=== PATIENT | female | born 1990 | race Caucasian/White ===

== ENCOUNTER 2016-12-19 18:46 | Inpatient (IN) | payer OTHER ==
[~2016-12-19] VITALS: Ht 161.3 cm; Wt 69.9 kg
[2016-12-19] MEDS ORDERED: Methylergonovine 0.2 mg/mL Inj IM PRN (21:45)
[2016-12-19] MEDS ORDERED: Lactated Ringer's 1,000 ML IV PRN (21:45)
[2016-12-19] MEDS ORDERED: Carboprost 250 mCg/mL Inj IM PRN (21:45)
[2016-12-19] MEDS ORDERED: Sodium Chloride LOK Flush 10 mL Syringe IVFLUSH PRN ×2 (21:45)
[2016-12-19] MEDS ORDERED: Hemorrhage Kit, Post Partum XX ONE (21:45)
[2016-12-19] MEDS ORDERED: Oxytocin 10 Unit/mL Inj IM PRN (21:45)
[2016-12-19] MEDS ORDERED: Ondansetron 2 mg/mL 2 mL Inj IVPUSH PRN (21:45)
[2016-12-19] MEDS ORDERED: fentaNYL-PF 50 mCg/mL 2 mL Inj IVPUSH PRN (21:45)
[2016-12-19] MEDS ORDERED: Oxytocin 30 Units/500 mL LR 30 UNITS in IV Premix 1 EACH IV PRN (21:45)
[2016-12-19] MEDS ORDERED: Lactated Ringer's 1,000 ML IV SCH (21:45)
[2016-12-19 22:28] LABS: Mean Corpuscular Hemoglobin 34.8 pg (27.0-35.0); Mean Corpuscular Volume 99.7 fL (81-100)
--- NOTE | 2016-12-19 23:10 | HP ---
[address] [address] HISTORY AND PHYSICAL PATIENT: JON ROWLEY : 1990 MR#: [id number] ADMIT: 12/19/2016 JOB ID: [id number] DATE: 12/19/2016 CHIEF COMPLAINT: Increased contractions and likely rupture of membranes at term. HISTORY OF PRESENT ILLNESS: A 26-year-old, 2, AB 1, para 0, with an EDC of December 16, 2016 based on LMP of March 11, 2016 presents with increasing contractions over the past few days, worse today. She thinks she may have had some leakage of fluid around 11 o'clock this morning. I saw her in the office about 5 p.m. She was becoming progressively more uncomfortable and when she mentioned the possible rupture, I sent her up to the Center where a ROM+test was positive. Nursing noted her to be 5 cm dilated, with somewhat irregular contractions and a reactive tracing. Patient asked to go to dinner at a local restaurant 1st then came back and now presents for admission. She is becoming more uncomfortable. Admitting nurse noted she did have a still bulging bag despite our ROM plus positive test. She is GBS negative. ISSUES: 1. PENICILLIN allergy. 2. Rubella equivocal. Needs a MMR. 3. Echogenic left ventricular intracardiac focus on initial ultrasound which resolved on a repeat November 18 ultrasound. 4. Gestational diabetes, controlled with diet alone. Last A1c December 04 of this year was 5.1. 5. The patient's mother in November of this year. ALLERGIES: Penicillin causes hives. CURRENT MEDICATIONS: vitamins 1 tablet daily. SOCIAL HISTORY: She works at a local [employer]. She is , Richard. She denies tobacco, alcohol or recreational drug use earlier in . PAST GYNECOLOGIC HISTORY: 3, para 0, AB 1, 1st trimester. PAST MEDICAL HISTORY: Prior varicella as well as prior shingles. FAMILY HISTORY: Half brother of the father of this baby has a cleft palate and the patient's mother had a history of gestational diabetes, recently of unclear causes. LABS: Blood type AB positive, antibody screen negative, rubella equivocal, serology nonreactive. Hepatitis B surface antigen and HIV test negative. Hematocrit 37.2 at 28 weeks. Pap was normal in June of this year. Chlamydia and gonorrhea tests were negative in September by urine. An initial urine culture showed mixed angela. Quad screen was negative in July of this year. An A1c at the beginning of was 5.0. Repeat in October was 4.8, a repeat in November was 5.1. A 28-week glucose tolerance test was abnormal with a fasting of 93, a 1 hour 151, a 2 hour 167. PHYSICAL EXAMINATION: Please see nursing notes for admitting vital signs, initial systolic was 144, repeat is 134/70. She is a slightly uncomfortable, slightly tired-appearing young woman, by last office weight was 154.4 pounds with an initial weight of 125 pounds. By Varinder's done in the office previously, is in vertex position. Estimated weight in the 6 pound range. Vaginal exam shows her to be 6 cm dilated, 100% effaced, -2 station. Bulging bag of fluid. heart tracing shows a baseline in the 140s with good long and short-term variability. There are some variables with contractions which seem to have improved since Nursing has repositioned the patient. These have quick recovery. Per nursing notes, patient is ROM+ positive. ASSESSMENT: 1. Gravid at term. 2. Group B strep negative. 3. Gestational diabetes, diet controlled. However, she has fallen off some of her blood sugar checks the past several weeks. 4. Echogenic ventricular focus on prior ultrasound, resolved. 5. Rubella equivocal. Needs a MMR. 6. PENICILLIN allergy which causes hives. 7. Rupture of membranes, probably 10 hours' duration. She still does have a bulging bag suggesting she may have a partial leak. PLAN: Discussed options and the concern about prolonged rupture of membranes if we do not move towards delivery. She is nolberto but somewhat irregularly. AROM was achieved without difficulty with return of clear fluid. I recommended oxytocin augmentation and case discussed with Dr. Esteban deckhand sponge boat for CONSTRUCTION SAFETY MANAGER providing backup privileges. At present, the patient is managing comfortably and would like to hold off on an epidural but might consider one later. Will get a baseline blood sugar and then plan for only q. shift unless they are significantly elevated. She will need a MMR vaccine. There are no current indications for antibiotics. VAUGHND
[2016-12-20] MEDS ORDERED: Sodium Citrate-Citric Acid 15 mL Solution ONE (01:01)
--- NOTE | 2016-12-20 01:08 | PROG NOTE ---
[address] [address] PROGRESS NOTE PATIENT: JON ROWLEY : 1990 MR#: [id number] ADMIT: 12/19/2016 JOB ID: [id number] DATE: 12/20/2016 INTERVAL HISTORY: I was contacted by nursing to come in because of increased heart rate variables with some decelerations to the 70s with recovery. On cervical examination, patient has not made a lot of cervical change, is still 6 cm, 90-100% effaced, perhaps now -1 down from -2 station. heart tracing shows good variability, typical variable decelerations to as low as the 70s with contractions. Nursing has tried repositioning and oxygen as well as an IV fluid bolus. ASSESSMENT: heart rate variable decelerations that are not responding to appropriate interventions so far. PLAN: Recommended amnioinfusion, and oxytocin was never started as is appropriate given the depth of these variables. IUPC placed without difficulty. Clear amniotic fluid flushed out. Amnioinfusion started with a 500 cc bolus to be followed by 125 cc an hour. The patient tolerated the procedure well. Initially variables seemed to be less deep and less frequent, even as contractions become stronger and more frequent. Will continue to monitor. If she has continued heart rate decelerations despite amnioinfusion and remains remote from delivery, a may be indicated.
[2016-12-20] MEDS ORDERED: Morphine PF 1 mg/mL 10 mL Inj ONE ×2 (01:21→12:44)
[2016-12-20] MEDS ORDERED: Lactated Ringer's 1,000 ML IV SCH (01:23)
[2016-12-20] MEDS ORDERED: Oxytocin 10 Unit/mL Inj IM PRN (01:25)
[2016-12-20] MEDS ORDERED: Hemorrhage Kit, Post Partum XX ONE (01:25)
[2016-12-20] MEDS ORDERED: Methylergonovine 0.2 mg/mL Inj IM PRN (01:25)
[2016-12-20] MEDS ORDERED: Carboprost 250 mCg/mL Inj IM PRN (01:25)
[2016-12-20] MEDS ORDERED: CeFAZolin Inj 2 GM in IV Premix 1 EACH IV SCH (01:25)
[2016-12-20] MEDS ORDERED: Sodium Citrate-Citric Acid 15 mL Solution PO SCH (01:25)
--- NOTE | 2016-12-20 01:41 | PCM.HPANE ---
Patient Data Surgeon Admitting Provider:Jose Fink MD Attending Provider:Jose Fink MD Primary Care Physician:Jose Fink MD Other Provider:Lesa Riveraingham Anesthesia Reason for Visit Active Labor ACTIVE LABOR Ht/WT & BMI Body Mass Index Allergies Coded Allergies: Penicillins (Verified Allergy, Mild, Rash, 12/19/16) Past Anesthesia History Anesthesia History: Denies:: Abnormal Airway, Anesthesia Reactions, Difficult Intubation, Fam Anesthesia Reaction, Fam Malignant Hypertherm, Malignant Hyperthermia Diabetes History Hx Diabetes?: No Medications Hypertension Medication: No Home Meds Incl Beta Emi: No History History of ENT Problems?: No HEENT History: Denies:: Abnormal Airway Cataracts Difficult Intubation Dysphagia Glaucoma Hearing Problem Sinus Problem TMJ Denture Type: None Teeth Condition: Within Normal Limits Hx of Heart Problems?: No Cardiovascular History: Denies:: AICD Abdominal Aortic Aneurism Atrial Fibrillation Cardiac Surgery Chest Pain Congestive Heart Failure Coronary Artery Disease Edema Heart Murmur Hypertension Irregular Heartbeat Pacemaker Peripheral Vascular Rheumatic Fever Thrombophlebitis Valvular Heart Disease Hx of Respiratory Problem?: No Respiratory History: Denies:: Asthma COPD Chest Surgery Cough Dyspnea Emphysema Hemoptysis Oxygen Administration Pneumonia Pulmonary Embolism Tuberculosis Use of C-PAP Machine Use of Inhalers / NEBS Hx Neurologic Problems?: No Hx of GI Problems?: Yes Gastrointestinal History: Positive for:: Heartburn Hx of Problems?: No Female Hx: Positive for:: Currently Hx Musculoskeletal Problems?: No Hx Surgeries?: No Smoking Status: Never Smoker Have You Smoked inLast 12 mo: No Stop/Bang Treated for Sleep Apnea?: No Do You Have a CPAP Machine?: No SILVIA Risk Assessment: Low Risk, <3 Yes Risk Assessment Category Category 1A: Patient has history of documented sleep apnea, and HAS NOT received any narcotic, sedative or anesthesia administration during this stay. Category 1B: Patient has history of documented sleep apnea, and HAS received any narcotic , sedative or anesthesia administration during this stay Category 2: Patient has SUSPECTED Obstructive Sleep Apnea, and HAS received any narcotic , sedative or anesthesia administration during this stay. Category 3: Patient has SUSPECTED Obstructive Sleep Apnea and HAS NOT received narcotic, sedative or anesthesia administration during this stay. Category 4: Outpatient in Procedural Areas with known sleep apnea or who screen positive for High Risk via the STOP/BANG questionnaire. Exam Exam General Appearance: Oriented X3 HEENT/AIRWAY: MP 2 Lungs: Normal Air Movement Heart: Regular Rate/Rhythm Meds/Labs/Diagnostics Admission Meds Current Medications Citric Acid/ Sodium Citrate (Bicitra) 15 ml STK-MED ONCE .ROUTE Last administered on 12/20/16t 01:19; Start 12/20/16 at 01:01; Stop 12/20/16 at 01:02; Status DC Labs Test 12/19/16 22:23 White Blood Count 20.2th/mm3 (3.8-10.1) Red Blood Count 3.97mil/mm3 (3.90-5.20) Hemoglobin 13.8g/dL (12.0-15.6) Hematocrit 39.6% (35.0-46.0) Mean Corpuscular Volume 99.7fL (81-100) Mean Corpuscular Hemoglobin 34.8pg (27.0-35.0) Mean Corpuscular Hemoglobin Concent 34.8% (32.0-37.0) Red Cell Distribution Width 12.5% (12.3-15.4) Platelet Count 215bil/L (150-400) Plan Impression Patient chart reviewed, patient interviewed and anesthestic plan with risks, benefits, and alternatives discussed, and informed consent obtained. ASA Physical Status: ASA2 Plus Emergency Anesthetic Plan: SAB Bene/Risks/Altern/Consents: Yes HP Complete Prior to Induction: Yes Segun Talley MD Dec 20, 2016 01:41
[2016-12-20] MEDS ORDERED: EPHEDrine Sulfate 50 mg/mL Inj IVPUSH PRN (01:45)
[2016-12-20] MEDS ORDERED: fentaNYL-PF 50 mCg/mL 2 mL Inj IVPUSH PRN (01:45)
[2016-12-20] MEDS ORDERED: Atropine 0.4 mg/mL Inj IV PRN (01:45)
--- NOTE | 2016-12-20 02:01 | PROG NOTE ---
[address] [address] PROGRESS NOTE PATIENT: JON ROWLEY : 1990 MR#: [id number] ADMIT: 12/19/2016 JOB ID: [id number] DATE: 12/20/2016 Despite over an hour of amnioinfusion, tracing shows continued variable heart rate decelerations down to the 60s to 70s with recovery. There continues to be fair to moderate intra-contraction heart rate variability. She is nolberto every 2-3 minutes and they are becoming progressively more intense. The patient's cervical examination unfortunately has not significantly changed. She is about 6.5 cm, 0 to -1 station, 90-100% effaced, vertex position. ASSESSMENT: heart rate variables which are deepening and have not responded to multiple resuscitative measures including position changes, oxygen, and an hour plus of amnioinfusion. PLAN: I recommended section. I asked Dr. Esteban to review the tracing and meet with the patient. He concurs. Patient and her partner were updated. The plan is to proceed with . AMRIT
--- NOTE | 2016-12-20 02:53 | PCM.ANEP1 ---
Post Anesthesia PACU Phase 1 Assessment Anesthetic Administered: SAB Level of Alertness: Awake, talking Pain: No Pain Scale Score: 10 Nausea or Vomiting: No CV Function & Hydration Stable: Yes Airway Device: Lungs: Normal Air Movement PACU Phase 2 Assessment Patient Instructions Provided: N/A Segun Talley MD Dec 20, 2016 02:53
[2016-12-20] MEDS ORDERED: Acetaminophen IV 1,000 MG in IV Premix 1 EACH IV PRN (05:55)
--- NOTE | 2016-12-20 08:15 | OP ---
[address] [address] OPERATIVE REPORT PATIENT: JON ROWLEY : 1990 MR#: [id number] ADMIT: 12/19/2016 JOB ID: [id number] DATE OF SURGERY: 12/20/2016 PROCEDURE: Primary low transverse section. PREOPERATIVE DIAGNOSIS(ES): 1. Intrauterine gestation at 39 weeks. 2. Gestational diabetes. 3. Failed induction of labor. 4. Nonreassuring heart rate. POSTOPERATIVE DIAGNOSIS(ES): 1. Intrauterine gestation at 39 weeks. 2. Gestational diabetes. 3. Failed induction of labor. 4. Nonreassuring heart rate. SURGEON: Farzad Esteban MD UNHAIRING MACHINE OPERATOR: Jose Fink MD. The assistance of Dr. Fink was necessary for tissue retraction, manipulation of the tissue, appropriate exposure and help during the delivery of the . ANESTHESIA: Spinal, Segun Talley MD ESTIMATED BLOOD LOSS: 700 mL. ESTIMATED URINE OUTPUT: 200 mL. FLUIDS: 800 mL of lactated Ringer. COMPLICATIONS: None. FINDINGS: Normal appearance of the adnexa and the uterus. The was found to be in the occiput posterior face up presentation. Female delivered, with scores 8 at one minute and 9 at five minutes. Weight 7 pounds 11 ounces. DESCRIPTION OF PROCEDURE: The patient was brought to the operating room, where she underwent spinal anesthesia without difficulty. The patient was placed in the dorsal supine position with a leftward tilt. She was prepped and draped in the usual surgical fashion. The patient received preoperative antibiotics. Time-out was performed verifying correct patient and correct procedure. Pfannenstiel skin incision was made with a scalpel and carried down to the underlying layer of rectus muscle fascia using Bovie. The rectus muscle fascia was incised in the midline with the Bovie and the incision was then laterally extended using Olivares scissors. The lower aspect of the incision was grasped with two Miriam clamps and the rectus muscle fascia was from the underlying rectus muscle using Olivares scissors. In a similar fashion, the upper aspect of the incision was grasped with two Miriam clamps, tented up, and the rectus muscle fascia was from the underlying rectus muscle using Olivares scissors and moist laparotomy sponge. The rectus muscles were in the midline. The peritoneum was identified, tented up with two Mahi clamps, and entered sharply with the Metzenbaum scissors. The peritoneal incision was then laterally extended. The bladder blade was introduced. The vesicouterine peritoneum was identified, tented up with smooth pickups, entered with Metzenbaum scissors and the bladder flap was created. The bladder blade was reintroduced. Using scalpel, lower segment transverse uterine incision was made and extended laterally. The head of the was identified. The female was found to be in the occiput posterior presentation, mouth facing directly in the area of the incision. The bladder blade was removed and with application of fundal pressure, the infant was atraumatically delivered. The cord was clamped and cut, and she was transferred to the waiting shine worker and the respiratory therapist. The cord blood was sent. The placenta was removed by the application of fundal pressure and contoured traction, it was discarded. After the placenta was removed, the uterus was cleared from all the blood clots and debris and exteriorized. The uterine incision was repaired with two layers of 0 Monocryl. The 1st imbricating layer in a running, locking fashion, the 2nd nonimbricating layer in a simple fashion. The pelvis was irrigated with warm normal saline and the uterus was repositioned back into the pelvis. The peritoneum and rectus muscles were reapproximated with 2-0 Vicryl. The rectus muscle fascia was closed with 0 Vicryl. The subcuticular tissue was reapproximated together with the Antionette's fascia using 3-0 Vicryl. The skin was closed with alexandra. Hemostatic dressing was applied. The patient was repositioned back into the supine position. She tolerated the procedure well and was transferred to the recovery room in stable condition.
[2016-12-20] MEDS ORDERED: Dexamethasone 4 mg/mL Inj ONE (12:44)
[2016-12-20] MEDS ORDERED: Ondansetron 2 mg/mL 2 mL Inj ONE (12:44)
[2016-12-20] MEDS ORDERED: Phenylephrine/NS 100 mCg/mL 10 mL Syringe IVPUSH ONE (12:44)
[2016-12-20] MEDS ORDERED: fentaNYL-PF 50 mCg/mL 2 mL Inj ONE (12:44)
[2016-12-20] MEDS ORDERED: MetoCLOpramide 5 mg/mL 2 mL Inj ONE (12:44)
[2016-12-20] MEDS ORDERED: Oxytocin 10 Unit/mL Inj ONE (12:44)
[2016-12-20] MEDS ORDERED: Bupivacaine-MPF 0.75% 30 mL Inj ONE (12:44)
[2016-12-20] MEDS: oxyCODONE-Acetamin 5-325 mg Tablet PO PRN ×2 (17:31→22:37)
[2016-12-20] MEDS ORDERED: Measles-Mumps-Rubella Vaccine 0.5 mL Inj SUBQ ONE (19:25)
[2016-12-21] MEDS: oxyCODONE-Acetamin 5-325 mg Tablet PO PRN ×4 (04:11→23:21)
[2016-12-21] MEDS ORDERED: Lactated Ringer's 1,000 ML IV SCH (08:29)
[2016-12-21] MEDS ORDERED: LANOlin HPA 7 Gm Ointment TOPICAL PRN (08:30)
[2016-12-21] MEDS ORDERED: Hemorrhage Kit, Post Partum XX ONE (08:30)
--- NOTE | 2016-12-21 08:35 | PCM.PNOBPP ---
Subjective Date of Service Dec 21, 2016 Post : Primary Ceserean Delivery Lochia: Normal Pain Management: PO pain meds Gastrointestinal: Good Appetite, No N/V Postop Activity: Ambulating in Room Only Labs Laboratory Tests 12/19/16 22:23: White Blood Count 20.2, Red Blood Count 3.97, Hemoglobin 13.8, Hematocrit 39.6, Mean Corpuscular Volume 99.7, Mean Corpuscular Hemoglobin 34.8, Mean Corpuscular Hemoglobin Concent 34.8, Red Cell Distribution Width 12.5, Platelet Count 215 Exam Vital Signs Vital Signs: VS reviewed, stable Exam Abdomen: Fundus firm : Voiding without difficulty Lungs: Clear to Auscultation Heart: Regular Rate/Rhythm, Normal S1, Normal S2 General: Alert, Oriented X3 Surgical Wound : Incision General Appearence: Ike, Intact, Well Approximated, Incision Healing, No Erythemia, No Discharge, No Inflammatory Changes OB Post Assessment/Plan Assessment 26 Y * POD#1 S/p PCD for NRFHT Appropriate post OP recovery continue current management. * GDM * Rubella equivocal. MMR ordered. * PENICILLIN allergy which causes hives. Louis Flynn MD Dec 21, 2016 08:35 Louis Flynn MD Dec 21, 2016 08:35
[2016-12-21] MEDS ORDERED: Measles-Mumps-Rubella Vaccine 0.5 mL Inj SUBQ ONE (08:45)
[2016-12-21 09:06] LABS: BASOPHILS % (AUTO) 0.3 % (0-3); MONOCYTES % (AUTO) 9.1 % (4-12); Mean Corpuscular Hemoglobin 34.4 pg (27.0-35.0); Mean Corpuscular Volume 102.6 fL (81-100); NEUTROPHILS % (AUTO) 68.5 % (40-74); Platelet Count 184 bil/L (150-400)
[2016-12-22] MEDS ORDERED: Ascorbic Acid 500 mg Tablet PO SCH (08:00)
[2016-12-22 12:21] VITALS: BP 133/62; PULSE 82; RESP 16
--- NOTE | 2016-12-22 12:26 | PCM.DIOB ---
Obstetrical Disch Instruction Date of Service: Dec 22, 2016 Dates of Hospitalization Date of Hospital Admission Dec 19, 2016 at 20:25 Providers Admitting Physician: Farzad Esteban MD Primary Care Physician: Jose Fink MD Attending Physician: Farzad Esteban MD Discharge Diagnosis Discharge Diagnosis POD#2 S/P PCD, anemia Problems: Diet Discharge Diet: No restrictions Activity Discharge Activity-General: Pelvic Rest for 6 weeks, No lifting >10 pounds for 4-6 weeks Dressing and Incisional Care Dressing Care: Keep dressing clean, dry & intact Hygiene: May shower Follow Up Plan Follow-up Provider (F9): Farzad Esteban MD Follow-up appointment: Weeks (2) Call your provider for: Fever or Chills, Shortness of breath, Heavy vaginal bleeding, Other (excessive pain not controlled with pain medications, abnormal wound discharge.) Siva Hernandez MD Dec 22, 2016 12:26
[2016-12-22] MEDS ORDERED: DOCU-41 PO (12:29)
[2016-12-22] MEDS ORDERED: IBUP-1827 PO (12:29)
[2016-12-22] MEDS ORDERED: Ascorbic Acid PO (12:29)
[2016-12-22] MEDS ORDERED: FERR-74 PO (12:29)
[2016-12-22] MEDS ORDERED: OXYC1TAB24 PO (12:29)
--- NOTE | 2016-12-22 13:17 | DIS ---
[address] [address] DISCHARGE SUMMARY PATIENT: JON ROWLEY : 1990 MR#: [id number] ADMIT: 12/19/2016 JOB ID: [id number] DIS: 12/22/2016 SUMMARY: The patient discharged postoperative day number two, status post primary section by Dr. Esteban for nonreassuring heart tracing. For further details, please refer to the fully dictated note. On the day of discharge, patient had no complaints. Voiding, ambulating, tolerating p.o. intake. with no difficulties. Vital signs are 133/62 for blood pressure. Respirations are 16. Pulse is 82, temperature 37.6 degrees centigrade. Heart is regular rate and rhythm. Positive S1, S2. Lungs clear to auscultation bilaterally. Abdomen firm. Uterine fundus palpated at the level of the umbilicus. Nondistended abdomen. Positive bowel sounds. Incision is clean, dry, and intact with Steri-Strips in place. Appropriate tenderness around the incision. Perineum: No active bleeding. Some swelling in the mons pubis. Discussed ice compresses with the patient. Lower extremities: No calf tenderness appreciated bilaterally. H and H on postop day number one was 9.3 and 27.7. The patient was started on iron supplementation for anemia. DISCHARGE PLAN: Patient will be discharged home in a stable condition. Will follow up with Dr. Esteban in the office in two weeks. Instructed to have nothing in the vagina for six weeks. No heavy lifting more than baby's weight. Instructed to call for fever, chills, severe abdominal pain not controlled with medication, heavy vaginal bleeding, abnormal wound discharge or any other concerning symptoms. The patient will be discharged home with the following medications: 1. Percocet 5/325, one tablet every 4 hours as needed for severe pain. 2. Ibuprofen every 6 hours for moderate pain. 3. Ferrous sulfate 325 mg twice daily with vitamin C 500 mg twice daily. 4. Colace 100 mg twice daily to avoid constipation. History of gestational diabetes, diet controlled. One hour postprandial dinner last night was 105. Patient understood the discharge instructions. She will comply with her discharge plan.
== END 2016-12-22 12:45 | disposition home or self-care (01) | DRG 766 ==
LOC: FBCO 18:46 → FBC 20:25
PROVIDERS: ADMIT Legal Medicine; ATTEND Legal Medicine
PROC: 10907ZC Drainage of Amniotic Fluid, Therapeutic from Products of Conception, Via Natural or Artificial Opening (ICD-10-PCS; 2016-12-20)
PROC: 10H07YZ Insertion of Other Device into Products of Conception, Via Natural or Artificial Opening (ICD-10-PCS; 2016-12-20)
PROC: 10D00Z1 Extraction of Products of Conception, Low, Open Approach (ICD-10-PCS; principal; 2016-12-20 01:28)
PROC: 3E0234Z Introduction of Serum, Toxoid and Vaccine into Muscle, Percutaneous Approach (ICD-10-PCS; 2016-12-21)
DX: O76 Abnormality in fetal heart rate and rhythm complicating labor and delivery (principal); O24.420 Gestational diabetes mellitus in childbirth, diet controlled; O90.81 Anemia of the puerperium; D64.9 Anemia, unspecified; Z23 Encounter for immunization; Z3A.39 39 weeks gestation of pregnancy; Z37.0 Single live birth